=== PATIENT | male | born 1960 | race Caucasian/White ===

== ENCOUNTER 2016-10-09 11:50 | Day surgery (SDC) | payer BC ==
[~2016-10-09] VITALS: Ht 167.6 cm; Wt 67.1 kg
[2016-10-09] MEDS ORDERED: NO MEDS (12:26)
[2016-10-09] MEDS ORDERED: PROPOFOL 20 ML ONE (14:18)
[2016-10-09] MEDS ORDERED: FENTAnyl 50 MCG/ML VIAL ONE (14:19)
[2016-10-09] MEDS ORDERED: MIDAZOLAM 1 MG/ML 2 ML INJ ONE (14:19)
[2016-10-09 14:29] VITALS: BP 123/75; PULSE 73; RESP 10
[2016-10-09 15:11] VITALS: BP 110/69; PULSE 68; RESP 14
--- NOTE | 2016-10-09 15:36 | OPPN ---
Date/Time of Note Date/Time of Note DATE: 10/09/16 TIME: 15:33 Proc Note GI Free Text/Dictation Procedure Date: 10/09/2016 Preoperative Diagnosis: Colorectal cancer screening Postoperative Diagnosis: * Normal colonic mucosa to cecum * Moderate-sized internal hemorrhoids Plan: * Annual Hemoccult stool testing * Screening colonoscopy in 10 years * High-fiber diet Operation Performed: Colonoscopy Surgeon: Silvia Christensen MD Adult Live In Caregiver: None Second Bottle Packer: None Anesthesia/Sedation monitored anesthesia care/Dr. Lizama Tourniquet Time: NA Estimated Blood Loss: None Transfusion Required: No Specimens: Rectal polyp Grafts/Implants: None Tubes/Drains: NA Complications: None Pt. Condition Post Procedure: Stable Disposition: Home After informed consent, with the patient/relatives understanding the procedure, its indications and potential risks and complications, including but not limited to: Allergic reaction, bleeding, perforation, infection, and after all pertinent questions were answered to the patient's satisfaction, the patient/ relatives signed the witnessed informed consent. Following this, premedication was administered slowly IV push under careful cardiovascular and respiratory monitoring with pulse [employer], automatic blood pressure, and youth nutritional monitor. Once the sedative effect was achieved, the patient was placed in the left lateral decubitus position, digital rectal examination was performed. A colonoscope was then introduced and advanced under visual control throughout all segments of the colon including: [the rectum, sigmoid, descending colon, splenic flexure, transverse colon, hepatic flexure, ascending colon and finally reaching the cecum which was clearly identified by transillumination, finger indentation and the ileocecal valve.] Careful examination of the mucosa of the lower gastrointestinal tract both on insertion as well as withdrawal of the instrument disclosed the following findings: Preparation quality: [Adequate], Rectal Examination: The anorectal area was visualized examined and digital rectal examination performed with the following findings: Small external hemorrhoids. Otherwise no evidence of perirectal disease, no masses.] Colonic mucosa: The mucosa of all segments of the colon was carefully examined and showed the following findings: [the examined mucosa appears within normal limits. There is no evidence of inflammatory changes, diverticular formation, polyps or other neoplasms, vascular malformation, or any other abnormality.] Moderate-sized internal hemorrhoids are present The instrument was then withdrawn, the patient tolerated the procedure well and was transferred out of the Endoscopy Suite awake and in good condition to continue recovery under observation. Procedure date: Oct 09, 2016 SILVIA CHRISTENSEN MD Oct 09, 2016 15:36
== END 2016-10-09 16:41 | disposition home or self-care (01) ==
LOC: GIL 11:50
PROVIDERS: ATTEND Internal Medicine Gastroenterology
DX: Z12.11 Encounter for screening for malignant neoplasm of colon (principal); K64.8 Other hemorrhoids
CPT/HCPCS: 45378; J2250; J3010; Z7610